=== PATIENT | female | born 1980 | race Caucasian/White ===

== ENCOUNTER 2017-02-02 00:44 | Emergency (ER) | payer OTHER ==
[2017-02-02 01:17] VITALS: BP 120/79; PULSE 84; RESP 16; TEMP 98.5; O2SAT 100
[2017-02-02] MEDS ORDERED: Tobramycin 0.3% OPHT SOLN OS STA (01:55)
--- NOTE | 2017-02-02 02:04 | ED PDOC ---
Arrival/HPI - General Chief Complaint: Eye Problem Time Seen by Provider: 02/02/17 01:55 Historian: Patient - History of Present Illness Narrative History of Present Illness (Text): 02/02/17 02:01 This 36 yo female presents to this ED c/o sensation of FB left eye x 4 hours. Patient stated she was able to removed contact lens from right eye without problems. However, she was not able to remove left eye contact lens. Patient stated she tried several times to remove contact lens, that she feels her left eye irritated. Patient denies other complains. Time/Duration: 4-6 hours Context: Home Past Medical History - Provider Review Nursing Documentation Reviewed: Yes - Endocrine/Metabolic Hx Endocrine Disorders: Yes Hx Hypothyroidism: Yes - Psychiatric Hx Substance Use: No Family/Social History - Physician Review Nursing Documentation Reviewed: Yes Family/Social History: No Known Family HX Smoking Status: Never Smoked Hx Alcohol Use: Yes Frequency of alcohol use: Socially Hx Substance Use: No Allergies/Home Meds Allergies/Adverse Reactions: Allergies No Known Allergies Allergy (Verified 02/02/17 01:14) Review of Systems - Review of Systems Constitutional: Normal. absent: Fatigue, Weight Change, Fevers, Night Sweats Eyes: Other ((+) left eye sensation of FB) ENT: Normal Respiratory: Normal Cardiovascular: Normal Gastrointestinal: Normal Genitourinary Female: Normal Musculoskeletal: Normal Skin: Normal Neurological: Normal Endocrine: Normal Hemo/Lymphatic: Normal Psychiatric: Normal Physical Exam Vital Signs Temp Pulse Resp BP Pulse Ox 02/02/17 01:14 98.5 F 84 16 120/79 100 Temperature: Afebrile Blood Pressure: Normal Pulse: Regular Respiratory Rate: Normal Appearance: Positive for: Well-Appearing, Non-Toxic, Comfortable Pain Distress: None Mental Status: Positive for: Alert and Oriented X 3 - Systems Exam Head: Present: Atraumatic, Normocephalic Pupils: Present: PERRL, Other (Fluorescine stain was negative. no corneal abrasion, no corneal ulcer, no FB ) Extroacular Muscles: Present: EOMI. No: Entrapment Conjunctiva: Present: Injected. No: Icteric Ears: Present: Normal, NORMAL TM, Normal Canal. No: Erythema, TM Bulging, Fluid , TM Perf Mouth: Present: Moist Mucous Membranes Neck: Present: Normal Range of Motion Back: Present: Normal Inspection. No: CVA Tenderness Upper Extremity: Present: Normal Inspection, Normal ROM. No: Cyanosis, Edema Lower Extremity: Present: Normal Inspection, Normal ROM. No: Edema Neurological: Present: GCS=15, CN II-XII Intact, Speech Normal, Motor Func Grossly Intact, Normal Sensory Function, Normal Cerebellar Funct, Gait Normal Skin: Present: Warm, Dry, Normal Color. No: Rashes Psychiatric: Present: Alert, Oriented x 3 Medical Decision Making ED Course and Treatment: 02/02/17 02:07 Re-evaluation. Patient feels better. Discussed results and plan with patient who expresses understanding. All questions answered and there is agreement with the plan to discharge home with instructions. Patient stable for discharge. Return if symptoms persist or worsen. Re-evaluation Time: 02:09 Reassessment Condition: Re-examined - Medication Orders Current Medication Orders: Tobramycin Sulfate (Tobrex 0.3% Ophth Soln) 1 drop OS STAT STA Stop: 02/02/17 01:56 Disposition/Present on Arrival - Present on Arrival Any Indicators Present on Arrival: No History of DVT/PE: No History of Uncontrolled Diabetes: No Urinary Catheter: No History of Decub. Ulcer: No History Surgical Site Infection Following: None - Disposition Have Diagnosis and Disposition been Completed?: Yes Diagnosis: Unspecified conjunctivitis Disposition: HOME/ ROUTINE Disposition Time: 02:10 Patient Plan: Discharge Condition: GOOD Discharge Instructions (ExitCare): Conjunctivitis (ED) Additional Instructions: Call [facility] office tomorrow for revaluation of left eye irritation, and sensation of contact lens. Use eye drop antibiotic as instructed. Return to emergency if symptoms returns. Prescriptions: Tobramycin 0.3% [Tobrex 0.3% Ophth Soln] 1 drop OS Q4H #1 bottle Referrals: Aden Sanchez [Staff Provider] - Follow up with primary Forms: WORK NOTE
== END 2017-02-02 02:59 | disposition home or self-care (01) ==
LOC: MERGE 00:44 → ED 00:44
DX: H10.9 Unspecified conjunctivitis (principal)